=== PATIENT | female | born 1965 | race Caucasian/White ===

== ENCOUNTER 2016-03-26 10:54 | Outpatient (RCR) | payer MEDICARE ==
[~2016-03-26 10:54] MED LIST: DUONSOL IN; JEVITY 1.5 CAL PEG; TRAM50TA2 OR; TYLE500T53 OR; VICO5TAB OR
== END 2016-04-20 ==
LOC: M ST 10:54
PROVIDERS: ATTEND Otolaryngology
DX: Z51.89 Encounter for other specified aftercare (principal); Z93.0 Tracheostomy status
CPT/HCPCS: 92597; G9174; G9175; G9176

== ENCOUNTER → 2016-07-30 | Outpatient (REF) | payer MEDICARE | LOC: M LAB REF 13:07 | PROVIDERS: ATTEND Internal Medicine Pulmonary Disease | DX: J43.2 Centrilobular emphysema (principal) ==

== ENCOUNTER → 2016-08-06 | Outpatient (CLI) | payer MEDICARE ==
[2016-08-06 14:40] LABS: ALBUMIN 3.4 GM/DL (3.2-5.2); ALKALINE PHOSPHATASE 105 U/L (45-117); ALT/SGPT 17 U/L (12-78); ANION GAP 4 MEQ/L (8-16); AST/SGOT 17 U/L (15-37); BILIRUBIN,TOTAL 0.2 MG/DL (0.2-1.0); BLOOD UREA NITROGEN 10 MG/DL (7-18); CALCIUM LEVEL 8.5 MG/DL (8.5-10.1); CARBON DIOXIDE LEVEL 32 MEQ/L (21-32); CHLORIDE LEVEL 105 MEQ/L (98-107); CHOLESTEROL LEVEL 212 MG/DL (<200); CREATININE FOR GFR 0.71 MG/DL (0.55-1.02); GLOMERULAR FILTRATION RATE > 60.0 (>51); GLUCOSE, FASTING 89 MG/DL (70-105); POTASSIUM SERUM 4.5 MEQ/L (3.5-5.1); SODIUM LEVEL 141 MEQ/L (136-145); TOTAL PROTEIN 6.8 GM/DL (6.4-8.2); TRIGLYCERIDES LEVEL 176 MG/DL (<150)
== END ==
LOC: M LAB 12:41
PROVIDERS: ATTEND Physician Assistant
DX: E78.4 Other hyperlipidemia (principal); E03.9 Hypothyroidism, unspecified

== ENCOUNTER 2016-09-02 08:46 | Outpatient (RCR) | payer MEDICARE | END 2016-09-17 | LOC: M ST 08:46 | PROVIDERS: ATTEND Otolaryngology | DX: Z51.89 Encounter for other specified aftercare (principal); Z93.0 Tracheostomy status; Z43.0 Encounter for attention to tracheostomy | CPT/HCPCS: 92597; G9174; G9175; G9176 ==

== ENCOUNTER 2016-09-30 09:47 | Outpatient (RCR) | payer MEDICARE ==
[2016-10-05] MEDS ORDERED: TIZA4CAP3 PO (11:34)
[2016-10-05] MEDS ORDERED: OMEP40CA2 PO (11:34)
[2016-10-05] MEDS ORDERED: LEVO75TA4 PO (11:34)
== END 2016-10-18 ==
LOC: M ST 09:47
PROVIDERS: ATTEND Otolaryngology
DX: C32.0 Malignant neoplasm of glottis (principal); Z44.8 Encounter for fitting and adjustment of other external prosthetic devices; Z93.0 Tracheostomy status
CPT/HCPCS: 92597; G9174; G9175; G9176

== ENCOUNTER 2016-10-05 11:19 | Emergency (ER) | payer MEDICARE ==
[~2016-10-05] VITALS: Ht 157.5 cm; Wt 66.4 kg
[2016-10-05] MEDS ORDERED: OMEP40CA2 PO (11:34)
[2016-10-05] MEDS ORDERED: LEVO75TA4 PO (11:34)
[2016-10-05] MEDS ORDERED: TIZA4CAP3 PO (11:34)
--- NOTE | 2016-10-05 12:41 | REP ---
PA and lateral chest: Comparison is 03/31/2015. There are no focal infiltrates or effusions. The lung viera are hyperinflated with crowding of the lung markings in the lower lung zones compatible with COPD, however, requiring clinical confirmation. There are Petersen rods in the thoracic spine. There is thoracic spine scoliosis. This is unchanged. There is no evidence of a radiopaque tracheostomy tube. The yenifer, mediastinum, and bony thorax are unremarkable. Impression: No acute cardiopulmonary findings. Signed by Dale Jones MD 10/05/2016 12:33 P
--- NOTE | 2016-10-05 13:26 | REP ---
Soft-tissue neck x-ray: Three views. History: Evaluate trach. Findings: AP and lateral views demonstrate surgical fixation rods in the upper thoracic spine. There is degenerative disc disease at C3-4, C4-5 and C5-6. These levels appear to be partially fused anteriorly. There is straightening and reversal of the normal cervical lordosis. This is a little more pronounced than on the 2009 prior study. There are multiple surgical clips in the soft tissues of the mid and lower neck anteriorly. The patient is apparently status post laryngectomy. There is no tracheostomy tube visible. There is evidence of a stoma. On the AP radiograph, there is mild dextroconvex curvature in the cervical spine. This is unchanged. Impression: Surgical clips in the soft tissues. No tracheostomy tube seen. Status post laryngectomy. Degenerative changes in the cervical spine. Signed by Harsha Redmond MD 10/05/2016 04:12 P
[2016-10-05 13:56] VITALS: BP 123/92
--- NOTE | 2016-10-05 22:32 | DSES ---
CONSULTATION: 10/05/2016 CHIEF COMPLAINT: Dislodged voice prosthesis. 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 My understanding is she had this procedure around 2010, and she also received chemotherapy and radiation. The patient had esophageal dilation about a year ago with Dr. Ruano here in [facility]. In August she had another dilation of her esophagus by Dr. Balderrama at [facility]. Dr. Balderrama is also her original surgeon for the laryngectomy. Patient has been noticing since the esophageal dilation that she has had some leakage around the tracheoesophageal puncture prosthesis. She has also been noticing that the prosthesis appears to be turning and is no longer straight. Today she no longer can really see the prosthesis, and the speech therapist did not feel comfortable replacing the prosthesis. Patient presented to the emergency room for evaluation of her malpositioned voice prosthesis. PAST MEDICAL HISTORY: 1. Laryngeal cancer. 2. She also has a history of scoliosis. 3. Hypothyroidism. SURGERIES: 1. Patient has had a total laryngectomy. 2. She has had the two esophageal dilations. 3. She has had procedures for scoliosis as well as an appendectomy. MEDICATIONS: See the nursing list. ALLERGIES: No known drug allergies. REVIEW OF SYSTEMS: Patient is not short of breath. She is still able to voice using her prosthesis. She has not been having any problems swallowing. In fact, her swallowing has improved since the esophageal dilation. She has not had any bleeding from the puncture site or any hemoptysis. She is not having any chest pain. PHYSICAL EXAMINATION: Temperature 98.8, pulse 101, respiratory rate 18, blood pressure 131/92. GENERAL: Patient is in no acute distress. She is able to voice with finger occlusion of her tracheostoma, indicating that the tracheoesophageal puncture is patent. The voice is fairly good quality. NECK: Demonstrates open tracheostoma. In the area where the prosthesis should be all I can see is some granulation tissue and scabbing. The prosthesis seems to be buried underneath some granulation tissue. I discussed the situation with the patient. I gave her a few options. I advised her that I could attempt removal of the prosthesis and placement of a catheter to the puncture site. I also suggested that the patient may want to see her head and neck surgeon, as long as the appointment could be this week, within the next few days. The patient did wish to see her head and neck surgeon in [place]. I called the physician's office, and nursing staff agreed to call the patient back with an appointment for this week. I communicated this to the patient. She understood. Advised that if there were any further problems with the puncture site or any changes, she can come back to the emergency room.
== END 2016-10-05 14:08 | disposition home or self-care (01) ==
LOC: M ED 11:19
DX: Z85.21 Personal history of malignant neoplasm of larynx (principal); T85.698A Other mechanical complication of other specified internal prosthetic devices, implants and grafts, initial encounter; Y92.9 Unspecified place or not applicable; Y93.9 Activity, unspecified; Z87.891 Personal history of nicotine dependence; Z79.899 Other long term (current) drug therapy
CPT/HCPCS: 70360; 71020; 92597; 99282; G9174; G9175; G9176

== ENCOUNTER → 2017-02-18 | Outpatient (CLI) | payer MEDICARE ==
[~2017-02-18] MED LIST changes: +LEVO75TA4 PO; +OMEP40CA2 PO; +TIZA4CAP3 PO
[2017-02-18 11:12] LABS: BASO % 0.3 % (0.0-1.0); EOS # 0.1 10^3/uL (0.0-0.50); EOS % 0.6 % (0.0-3.0); IMMATURE GRANULOCYTE % 0.3 % (0-0); LYMPH # 1.7 10^3/uL (1.5-4.5); LYMPH % 11.7 % (24.0-44.0); MEAN CORPUSCULAR HEMOGLOBIN 29.4 pg (27.0-33.0); MEAN CORPUSCULAR HGB CONC 32.4 g/dl (32.0-36.5); MEAN CORPUSCULAR VOLUME 90.7 fl (80.0-96.0); MONO # 1.3 10^3/uL (0.0-0.8); MONO % 8.7 % (0.0-5.0); NEUTROPHILS # 11.5 10^3/uL (1.8-7.7); NEUTROPHILS % 78.4 % (36.0-66.0); PLATELET COUNT, AUTOMATED 493 10^3/uL (150-450); RED CELL DISTRIBUTION WIDTH 14.7 % (11.5-14.5); WHITE BLOOD COUNT 14.7 10^3/uL (4.0-10.0)
[2017-02-18 11:39] LABS: ANION GAP 7 MEQ/L (8-16); BLOOD UREA NITROGEN 10 MG/DL (7-18); CARBON DIOXIDE LEVEL 31 MEQ/L (21-32); CHLORIDE LEVEL 100 MEQ/L (98-107); GLOMERULAR FILTRATION RATE > 60.0 (>51); GLUCOSE, FASTING 96 MG/DL (70-105); POTASSIUM SERUM 4.2 MEQ/L (3.5-5.1); SODIUM LEVEL 138 MEQ/L (136-145)
== END ==
LOC: M LAB 10:29
PROVIDERS: ATTEND Family Medicine
DX: Z01.818 Encounter for other preprocedural examination (principal); R13.14 Dysphagia, pharyngoesophageal phase; E78.4 Other hyperlipidemia; Z90.02 Acquired absence of larynx

== ENCOUNTER → 2017-02-18 | Outpatient (CLI) | payer MEDICARE ==
[2017-02-18 11:52] LABS: ALKALINE PHOSPHATASE 98 U/L (45-117); ALT/SGPT 14 U/L (12-78); ANION GAP 9 MEQ/L (8-16); AST/SGOT 11 U/L (7-37); BILIRUBIN,TOTAL 0.3 MG/DL (0.2-1.0); BLOOD UREA NITROGEN 10 MG/DL (7-18); CALCIUM LEVEL 8.9 MG/DL (8.5-10.1); CARBON DIOXIDE LEVEL 31 MEQ/L (21-32); CHLORIDE LEVEL 97 MEQ/L (98-107); CHOLESTEROL LEVEL 208 MG/DL (<200); CREATININE FOR GFR 0.71 MG/DL (0.55-1.02); GLOMERULAR FILTRATION RATE > 60.0 (>51); GLUCOSE, FASTING 91 MG/DL (70-105); POTASSIUM SERUM 4.1 MEQ/L (3.5-5.1); SODIUM LEVEL 137 MEQ/L (136-145); TOTAL PROTEIN 7.3 GM/DL (6.4-8.2); TRIGLYCERIDES LEVEL 112 MG/DL (<150)
== END ==
LOC: M LAB 10:11
PROVIDERS: ATTEND Physician Assistant
DX: Z01.818 Encounter for other preprocedural examination (principal); R13.14 Dysphagia, pharyngoesophageal phase; Z90.02 Acquired absence of larynx; E78.4 Other hyperlipidemia

== ENCOUNTER → 2017-03-04 | Outpatient (REF) | payer MEDICARE | LOC: M SFHCWAGY 09:54 | PROVIDERS: ATTEND Family Medicine | DX: Z12.4 Encounter for screening for malignant neoplasm of cervix (principal); R87.610 Atypical squamous cells of undetermined significance on cytologic smear of cervix (ASC-US); N76.0 Acute vaginitis | CPT/HCPCS: 87624; G0123 ==

== ENCOUNTER → 2017-03-18 | Outpatient (CLI) | payer MEDICARE | LOC: M WHC 13:00 | DX: Z12.31 Encounter for screening mammogram for malignant neoplasm of breast (principal) | CPT/HCPCS: G0202 ==

== ENCOUNTER → 2019-07-19 | Outpatient (REF) | payer MEDICARE ==
[~2019-07-19] MED LIST changes: -OMEP40CA2 PO; +OMEP40CA97 PO; +TIZA4CAP PO; -TIZA4CAP3 PO
[2019-07-19 15:39] LABS: AMORPHOUS SEDIMENT SMALL (NEGATIVE); APPEARANCE, URINE CLOUDY (CLEAR); BACTERIA, URINE AUTO NEGATIVE (NEGATIVE); BILIRUBIN, URINE AUTO NEGATIVE (NEGATIVE); BLOOD, URINE BLOOD NEGATIVE (NEGATIVE); COLOR, URINE YELLOW (YELLOW); GLUCOSE, URINE (UA) AUTO NEGATIVE (NEGATIVE); KETONE, URINE AUTO NEGATIVE (NEGATIVE); LEUKOCYTE ESTERASE, URINE AUTO NEGATIVE (NEGATIVE); MUCUS, URINE SMALL (NEGATIVE); NITRITE, URINE AUTO NEGATIVE (NEGATIVE); PROTEIN, URINE AUTO NEGATIVE (NEGATIVE); RBC, URINE AUTO 1 /HPF (0-3); SPECIFIC GRAVITY URINE AUTO 1.018 (1.002-1.035); SQUAMOUS EPITHELIAL CELL UR AU 0 /HPF (0-6); UROBILINOGEN, URINE AUTO 0.2 mg/dL (0.0-2.0); WBC, URINE AUTO 1 /HPF (0-3)
[2019-07-19 16:08] LABS: BLOOD UREA NITROGEN 13 MG/DL (7-18); CALCIUM LEVEL 9.4 MG/DL (8.5-10.1); CARBON DIOXIDE LEVEL 30 MEQ/L (21-32); CHLORIDE LEVEL 104 MEQ/L (98-107); CREATININE FOR GFR 0.76 MG/DL (0.55-1.30); GLOMERULAR FILTRATION RATE > 60.0 (>51); GLUCOSE, FASTING 85 MG/DL (70-100); POTASSIUM SERUM 4.6 MEQ/L (3.5-5.1); SODIUM LEVEL 139 MEQ/L (136-145)
== END ==
LOC: M SFHCPLAZ 14:23
PROVIDERS: ATTEND Family Medicine
DX: I10 Essential (primary) hypertension (principal)
CPT/HCPCS: 36415; 80048; 81001; G0463

== ENCOUNTER → 2020-04-07 | Outpatient (CLI) | payer MEDICARE ==
--- NOTE | 2020-04-07 12:02 | REP ---
INDICATION: PERSONAL HX OF NICOTINE DEPENDENCE. COMPARISON: Comparison low-dose screening chest CT study March 01, 2019. Comparison chest CT study January 31, 2011.. TECHNIQUE: Low-dose screening acquisition.3 mm lung window axial images FINDINGS: Emphysematous changes are again noted in the upper lobes bilaterally and bullous emphysematous changes are noted in the right lower lobe and to a lesser extent the left unchanged. Thoracic and lumbar scoliosis and Petersen stabilization rods are again visible in place in the thoracic spine. No pulmonary nodule or mass lesion is appreciated. Patient is status post tracheostomy. There is a healing rib fracture noted anteriorly on the left 2nd rib. IMPRESSION: No pulmonary nodule or mass lesion seen. Lung RADS category 1 findings. Repeat screening exam suggested in 1 year. <Electronically signed by Amrik Redmond > 04/07/20 [id number]
== END ==
LOC: M RAD 11:02
PROVIDERS: ATTEND Internal Medicine Pulmonary Disease
DX: Z12.2 Encounter for screening for malignant neoplasm of respiratory organs (principal); Z87.891 Personal history of nicotine dependence; J43.9 Emphysema, unspecified; Z93.0 Tracheostomy status

== ENCOUNTER → 2020-04-29 | Outpatient (REF) | payer MEDICARE ==
[2020-04-29 14:36] LABS: CHOLESTEROL RISK RATIO 2.68 (<5); THYROID STIMULATING HORMONE 0.222 uIU/ML (0.358-3.740)
== END ==
LOC: M SFHCPLAZ 09:02
PROVIDERS: ATTEND Family Medicine
DX: E03.9 Hypothyroidism, unspecified (principal); Z13.220 Encounter for screening for lipoid disorders

== ENCOUNTER → 2020-05-15 | Outpatient (CLI) | payer MEDICARE ==
--- NOTE | 2020-05-15 14:46 | REPMRS ---
Patient History The patient states she has not had a clinical breast exam in over a year. No known family history of cancer. Digital Woman Screen Mammo: May 15, 2020 - Exam #: [id number] Bilateral CC and MLO view(s) were taken. Technologist: RT [place] Prior study comparison: March 18, 2017, digital woman screen mammo performed at [facility]. January 09, 2016, digital woman screen mammo performed at [facility]. December 24, 2014, digital woman screen mammo performed at [facility]. FINDINGS: There are scattered fibroglandular densities. The Volpara volumetric breast density category is:B. There has been no change in the appearance of the mammogram from the prior studies. There is a mild amount of scattered fibroglandular density which is fairly symmetric. There is no interval development of dominant mass, architectural distortion, or grouped microcalcification suggestive of malignancy. 3-D tomosynthesis shows no additional findings. Assessment: BI-RADS/ACR category 1 mammogram. Negative Mammogram. Recommendation Routine screening mammogram of both breasts in 1 year (for women over age 40). This patient's [facility] Lifetime Breast Cancer Risk is estimated at 4.3 %. This mammogram was interpreted with the aid of an FDA-approved computer-aided dectection system. Electronically Signed By: Amrik Redmond MD 05/15/20 1407
== END ==
LOC: M WHC 13:47
PROVIDERS: ATTEND Family Medicine
DX: Z12.31 Encounter for screening mammogram for malignant neoplasm of breast (principal)

== ENCOUNTER → 2020-06-30 | Outpatient (CLI) | payer MEDICARE | LOC: M LAB 12:11 | PROVIDERS: ATTEND Family Medicine | DX: E03.9 Hypothyroidism, unspecified (principal) ==

== ENCOUNTER 2020-09-12 14:44 | Emergency (ER) | payer MEDICARE ==
[~2020-09-12] VITALS: Ht 157.5 cm; Wt 58.6 kg
[~2020-09-12 14:44] MED LIST changes: +OMEP40CA4 PO; -OMEP40CA97 PO
--- NOTE | 2020-09-12 15:55 | REP ---
INDICATION: rule out foriegn body. Patient is status post laryngectomy. COMPARISON: Comparison study is from October 05, 2016.. TECHNIQUE: Three views of the neck soft tissues are presented. FINDINGS: Patient is status post laryngectomy with numerous surgical clips noted in the soft tissues of the neck. The phonation tracheostomy plug is visible at the thoracic inlet. No other opaque foreign body is appreciated. Fusion hardware is seen in the upper thoracic spine. There is reversal of the normal cervical lordosis and straightening in the cervical spine. Advanced degenerative disc disease is noted. A dextroconvex curvature is visible in the cervical spine on the frontal view. These findings are unchanged. IMPRESSION: Status post laryngectomy. Tracheostomy phonation plug is visible. No other foreign body is seen. Degenerative spondylosis and straightening. <Electronically signed by Amrik Redmond > 09/12/20 [id number]
--- NOTE | 2020-09-12 15:56 | REP ---
INDICATION: rule out foriegn body. COMPARISON: Comparison chest x-ray October 05, 2016. TECHNIQUE: Two views.. FINDINGS: The lungs are symmetrically aerated and free of infiltrate. Pleural angles are sharp. There is a moderate dextroconvex thoracic scoliotic curve and a levoconvex lumbar curve. A fractured fusing rot is seen in place along the left side of the vertebral column spanning the thoracolumbar spine. This is unchanged. There is a dorsal fixation device in place in the right thoracic spine. This is also unchanged. Heart is not enlarged. No infiltrate is seen. No opaque foreign body is appreciated. IMPRESSION: Status post thoracic spine surgery for scoliosis. No active cardiopulmonary disease seen.. <Electronically signed by Amrik Redmond > 09/12/20 [id number]
[2020-09-12] MEDS ORDERED: CETACAINE SPRAY 5GM As Ordered ONE (17:23)
[2020-09-12] MEDS ORDERED: ARTICAINE HCL/EPINEPHRINE 4%-1:200,000 1.7ML INJ (SEPTOCAINE) As Ordered ONE (17:23)
[2020-09-12 17:41] VITALS: BP 204/117
[2020-09-12] MEDS ORDERED: LEVO25SO PO (18:00)
[2020-09-12] MEDS ORDERED: CETACAINE SPRAY 5GM TOP ONE (18:00)
--- NOTE | 2020-09-12 20:36 | RO ---
OPERATIVE NOTE DATE OF OPERATION: 09/12/2020 PREOPERATIVE DIAGNOSIS: cough, possible foreign body aspiration POST PROCEDURE DIAGNOSIS: Aspiration pneumonia. PROCEDURE: Bronchoscopy. PROCEDURALIST: Kirna Salcido DO [facility] LEARNING DESIGNER: None. ANESTHESIA: Topical Cetacaine spray. INDICATION: Foreign body sensation. Consent was obtained, written and placed in the chart. DESCRIPTION OF PROCEDURE: Time-out was performed with two patient identifiers. Identifying correct site, correct procedure and the microscope was then inserted after Cetacaine spray was used to anesthetize the airway. There were copious amounts of secretions. The speech valve was in place, but very mobile. The bronchoscope was extended into the trachea. The trachea was midline with copious amounts of mucous. The floresita was fairly sharp, right and left mainstem bronchi were also normal except for mucous. RB 1 through 10 was inspected with careful attention to the right middle and lower lobes for any evidence of foreign bodies, none were seen. I then evaluated the left side. RB 1 through 10 again inspected without endobronchial lesions or foreign bodies. The scope was removed. The patient, I believe, was having aspiration of oral contents around the speech valve and this was creating a sensation of aspiration in her trachea. The speech valve does appear to be in place at this point in time. I would recommend treatment for aspiration pneumonia with oral liquid levofloxacin. This was communicated to the emergency room and discharging physician. cc: Lance Balderrama MD [place] [facility]
--- NOTE | 2020-09-13 09:31 | CR ---
CONSULTATION DATE: 09/12/2020 REASON FOR CONSULTATION: I was called to the emergency room by the physician general office assistant due to concern for a lost prosthesis in the airway. 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 Recently she has been going to the [facility] for her speech valve prosthesis. She states she went there three days ago. She felt that she was aspirating liquid from her speech valve prosthesis and she felt that when she was cleaning it that the prosthesis may have fell out into the airway. She has had no fever or chills. Otherwise, she feels fine except for coughing. She has had no hemoptysis. No chest discomfort. PAST MEDICAL HISTORY: 1. Emphysema, GOLD stage 4. 2. History of total laryngectomy, status post subglottic squamous cell carcinoma many years ago. 3. History of esophageal stricture with previous dilation. 4. 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 5. History of severe scoliosis with Petersen jailyn placement. 6. History of hypothyroidism. 7. History of gastroesophageal reflux. 8. History of right rib fracture. 9. Remote history of nicotine dependence, quit in 2010. 10. Hypertension. CURRENT MEDICATIONS: 1. Albuterol. 2. Brovana. 3. Budesonide. 4. Omeprazole. 5. Ventolin. 6. Loratadine. 7. Levothyroxine. 8. Amlodipine. SOCIAL HISTORY: Ex-smoker, lives with . is in attendance today. No recent travel. FAMILY HISTORY: The patient states she is not in contact with her family but she knows that her mother had chronic obstructive pulmonary disease. REVIEW OF SYSTEMS: Constitutional: No fever, chills, night sweats, no significant change in weight. She has difficulty swallowing pills. HEENT: Occasional dizziness. She does have a chronic loss of smell since 2012. No impairment in vision, hearing or taste. Cardiovascular: No angina, orthopnea, PND or claudication. Pulmonary: No history of tuberculosis or tuberculosis exposures. GI: Occasional heartburn but no nausea, vomiting, constipation, diarrhea, history of hepatitis or pancreatitis. : No burning or increased frequency. No dysuria. No history of nephrolithiasis. Endocrine: She has no history of diabetes but does carry a history of hypothyroidism. She has no intolerance to hot or cold. Heme: No easy bruising, bleeding or known history of requiring blood transfusion. Neurologic: No stroke, seizure or significant head trauma. Derm: No psoriasis or pruritic skin lesions. No new rashes. Psychiatric: No history of major depression or suicidal ideation. Occasional anxiety. Allergy/Immunology: No known environmental or allergy or immunodeficiencies. Musculoskeletal: Positive for muscle aches and cramping now and then, no joint pain, no joint swelling. She does not require the use of cane or walker with ambulation, Sleep: Sometimes has difficulty sleeping, restless sleep. No snoring, witnessed apneas. PHYSICAL EXAMINATION: GENERAL: The patient is slightly anxious, sitting at bedside, coughing up copious amounts of mucus through her stoma. VITAL SIGNS: Temperature is 98.0. Pulse is 79. Respiratory rate is 19. Blood pressure is 191/117 with a MAP of 141. Oxygen saturation is 97% on room air. HEENT: Sclerae are clear, nonicteric. Pupils are equal and reactive to light. Mucous membranes are moist. Stoma is patent. Speech valve appears in place. There are copious amounts of mucus coming from the stoma which has cleared. Minimal excoriation on the left lateral wall of the stoma without significant bleeding. LYMPH: No cervical, supraclavicular, axillary adenopathy. CARDIAC: Regular, S-1, S-2 with audible murmur, rub or gallop. PULMONARY: Decreased breath sounds without rales, rhonchi or wheezes. No dullness to percussion. No accessory muscle use. ABDOMEN: Soft, nontender, nondistended. No hepatosplenomegaly. No masses or hernias. EXTREMITIES: No cyanosis, clubbing or edema. SKIN: Cool and dry, no rash, jaundice or bruising. DIAGNOSTIC STUDIES: No labs were obtained. Neck x-ray was obtained showing status post laryngectomy, speech valve in place. Chest x-ray was obtained which is unchanged, no evidence of new lesions, no evidence of new mass, no infiltrate. Petersen rods are in place. IMPRESSION: 1. Respiratory distress/cough. Sensation of aspiration. Possible foreign body. The patient with cough and mucus production. Concern for possible aspiration pneumonitis. We will perform bronchoscopy. Risks and benefits of bronchoscopy discussed with the patient in the ER. She understands the risk of irritation, coughing, injury to surrounding structures and hemoptysis. She states that she has had this done many times before and consents to this procedure. The prosthesis is in place. Therefore, I believe she most likely has aspiration pneumonitis. If this is the case, would recommend levofloxacin for the next seven days. The patient is unable to take pills, would provide this in liquid form. MTDD
== END 2020-09-12 18:43 | disposition home or self-care (01) ==
LOC: M ED 14:44
DX: J95.09 Other tracheostomy complication (principal); T85.898A Other specified complication of other internal prosthetic devices, implants and grafts, initial encounter; T17.908A Unspecified foreign body in respiratory tract, part unspecified causing other injury, initial encounter; K21.9 Gastro-esophageal reflux disease without esophagitis; E03.9 Hypothyroidism, unspecified; Z79.51 Long term (current) use of inhaled steroids; Z87.891 Personal history of nicotine dependence; Z85.21 Personal history of malignant neoplasm of larynx

== ENCOUNTER → 2020-10-28 | Outpatient (CLI) | payer MEDICARE ==
[~2020-10-28] MED LIST changes: +LEVO25SO PO
[2020-10-28 11:03] LABS: BLOOD UREA NITROGEN 6 MG/DL (7-18); CALCIUM LEVEL 9.2 MG/DL (8.5-10.1); CARBON DIOXIDE LEVEL 31 MEQ/L (21-32); CHLORIDE LEVEL 102 MEQ/L (98-107); CREATININE FOR GFR 0.66 MG/DL (0.55-1.30); GLOMERULAR FILTRATION RATE > 60.0 (>51); GLUCOSE, FASTING 80 MG/DL (70-100); SODIUM LEVEL 139 MEQ/L (136-145)
== END ==
LOC: M PLALAB 08:40
PROVIDERS: ATTEND Family Medicine
DX: E03.9 Hypothyroidism, unspecified (principal); I10 Essential (primary) hypertension
CPT/HCPCS: 36415; 80048; 84443; G0463

== ENCOUNTER → 2020-12-31 | Outpatient (CLI) | payer MEDICARE ==
[~2020-12-31] MED LIST changes: +ISOVUE-370 76% 100ML VIAL As Ordered ONE
--- NOTE | 2020-12-31 15:15 | REPVR ---
PROCEDURE INFORMATION: Exam: CT Neck With Contrast Exam date and time: 12/31/2020 2:22 PM Age: 55 years old Clinical indication: Mass, lump, or swelling in neck; Right; Additional info: Larynx neoplasm swelling of tonsil TECHNIQUE: Imaging protocol: Computed tomography images of the neck with contrast. Radiation optimization: All CT scans at this facility use at least one of these dose optimization techniques: automated exposure control; mA and/or kV adjustment per patient size (includes targeted exams where dose is matched to clinical indication); or iterative reconstruction. Contrast material: ISOVUE 370; Contrast volume: 75 ml; Contrast route: INTRAVENOUS (IV); COMPARISON: CR Soft Tissue Neck 09/12/2020 3:14 PM FINDINGS: Limitations: Evaluation is limited without a prior neck CT for comparison. Soft tissues: There is a large solid mass in the right neck, involving the right parapharyngeal space and right carotid space. The mass extends from near the skull base to the right carotid bifurcation, measuring approximately 5.9 x 4.2 x 3.3 cm. The mass appears to be extending into the posterior right tongue base. There is anterior displacement of the right parapharyngeal fat pad. The mass encases the right internal carotid artery, causing a long segment of approximately 50% stenosis. Additionally, the mass encases and compresses the right internal jugular vein, causing near occlusion. Oropharynx: No tonsillar abscess. There is mild narrowing of the posterior oropharynx due to compression from the right neck mass. Larynx: There are extensive postoperative changes within the neck related to a prior laryngectomy. Retropharyngeal space: Minimal retropharyngeal edema is present. Submandibular/Parotid glands: The parotid glands appear unremarkable. Thyroid: Minimal residual thyroid tissue appears to be present. Lymph nodes: A pathologically enlarged right posterior triangle lymph node is noted, measuring 2.3 x 1.6 x 1.4 cm. Trachea: A tracheostomy is noted. Lungs: Severe centrilobular emphysema is noted in the upper lobes. Bones/joints: There is reversal of the normal cervical lordosis. Severe degenerative changes of the cervical spine are present. There is moderate/severe spinal canal stenosis at C4-C5 and C5-C6. Multilevel neural foraminal narrowing from uncinate spurring and facet arthropathy is noted. IMPRESSION: 1. Extensive postoperative changes related to a prior laryngectomy 2. Large residual/recurrent mass in the right neck as discussed above. The mass is encasing the right internal jugular vein and right internal and external carotid arteries. There is near occlusion of the right internal jugular vein and the right external carotid artery. There is approximately 50% stenosis of the right internal carotid artery. Electronically signed by: Carl Robison On 12/31/2020 15:15:01 PM
== END ==
LOC: M RAD 14:02
PROVIDERS: ATTEND Otolaryngology
DX: R22.1 Localized swelling, mass and lump, neck (principal); T17.908A Unspecified foreign body in respiratory tract, part unspecified causing other injury, initial encounter; Z85.21 Personal history of malignant neoplasm of larynx; J35.1 Hypertrophy of tonsils; Z93.0 Tracheostomy status; M48.02 Spinal stenosis, cervical region; Z90.02 Acquired absence of larynx
CPT/HCPCS: 70491; Q9967

== ENCOUNTER → 2021-08-24 | Outpatient (CLI) | payer MEDICARE ==
[~2021-08-24] MED LIST changes: +E-Z-GAS II EFFERVESCENT PACKET (SODIUM BICARB./CITRIC ACID/SIMETHICONE) As Ordered ONE; +E-Z-HD 98% w/w 340GM SUSP BTL As Ordered ONE; +E-Z-PAQUE 96% w/w SUSP 176GM BTL As Ordered ONE; -ISOVUE-370 76% 100ML VIAL As Ordered ONE
== END ==
LOC: M RAD 09:38
PROVIDERS: ATTEND Otolaryngology
DX: K22.2 Esophageal obstruction (principal)